=== PATIENT | male | born 1960 | race Caucasian/White ===

== ENCOUNTER 2020-04-12 08:48 | Day surgery (SDC) | payer OTHER, SELFPAY ==
[2020-04-12] VITALS (7 sets, daily range): BP systolic 102–155; BP diastolic 65–85; PULSE 62–68; RESP 12–18; TEMP 36.3–37; O2SAT 95–100; BMI 25.6
--- NOTE | 2020-04-12 | PATH_ITS ---
[facility] Accession Number: [id number] . 01 Material submitted: . PART A: rectum - RECTAL POLYP PART B: colon - APPENDICEAL . 02 Diagnosis: A. Rectal Polyp: Tubular adenoma. . B. Appendiceal: Portions of tubular adenoma x3. MRV 04/15/2020 0948 Local . 02 Electronically signed: . Beatriz Campos MD, Pathologist NPI- [id number] . 01 Gross description: . A. Specimen A is received in formalin, labeled rectal polyp and consists of a 0.3 x 0.3 x 0.2 cm alejandra fragment of soft tissue, which is entirely submitted in cassette A1. B. Specimen B is received in formalin, labeled appendiceal biopsy and consists of three alejandra-pink fragments of soft tissue, measuring 0.6 x 0.5 x 0.2 cm in aggregate. The specimen is entirely submitted in cassette B1. ([id number]) /[facility] 04/13/2020 1800 Local . 02 Pathologist provided ICD-10: K63.5, Z12.11 . 02 CPT . 685746, [id number] Performed at: 01 [facility] [address] [facility], [place], [place] [id number] MD Abelino Mcdonald MD Phone: [phone] Performed at: 02 [facility] [address] [place], [place] [id number] MD Dee Dorado MD Phone: [phone]
[2020-04-12] MEDS: LACTATED RINGERS 1,000 ML 200 ML IV (09:20)
--- NOTE | 2020-04-12 09:40 | PM.HP.1 ---
History of Present Illness History of Present Illness Date Patient Seen: 04/12/20 Time Patient Seen: 09:41 Chief complaint: SDC Narrative: The patient presents for colorectal sreening. They have never had any previous examination for such. No personal or family history of colon cancer. On further history denies any recent gastrointestinal symptoms. No nausea, vomiting, abdominal pain, loss of appetite, unexplained weight loss, change in bowel habits, diarrhea, constipation, melena, hematochezia, or bright red blood per rectum. Patient History Medical History Tobacco abuse (Acute) Family & Social History Social History: household members significant other Tobacco & Substance use: Tobacco type cigarettes Smoking Status Current every day smoker Smoking packs per day 0.5 alcohol intake current alcohol intake frequency 0-2 drinks per day Substance Use Type marijuana Meds Home Medications and Allergies Home Medications Medication Instructions Recorded Confirmed Type No Known Home Medications 04/12/20 04/12/20 History Allergies Allergy/AdvReac Type Severity Reaction Status Date / Time amoxicillin Allergy Verified 04/12/20 09:00 Review of Systems Review of Systems Narrative: A 10 point review of systems is negative except as noted in the HPI Exam Vital Signs (past 8 hours): - 04/12/20 09:10 Temperature 97.4 F L Pulse Rate 64 Respiratory Rate 17 Blood Pressure 155/85 H Pulse Oximetry 100 Oxygen Delivery Method Room Air Narrative Exam Narrative: General-no acute distress, well nourished adult male HEENT-moist mucous membranes, no scleral icterus Neck-supple, no lymphadenopathy Chest- non labored respirations, clear to auscultation bilaterally Cardiac-regular rate no peripheral edema Abdomen-soft, nontender, non distended Extremities-warm, well perfused Neurological-alert and oriented, no focal deficits Assessment & Plan Assessment & Plan narrative: The patient requires colorectal screening and colonoscopy is recommended. Technical details were discussed. Risks, benefits, alternatives explained. Risks including but not limited to myocardial infarction, aspiration, bleeding, pain, missed lesion, incomplete examination, need for further radiographic studies, colonic perforation, and need for major abdominal surgery were discussed. All questions were answered to their satisfaction, and they are in agreement with this plan.
[2020-04-12] MEDS: fentaNYL 250 MCG/5 ML INJ IV (09:51)
[2020-04-12] MEDS: MIDAZOLAM 5 MG/5 ML VIAL IV (09:51)
--- NOTE | 2020-04-12 10:08 | PM.OP.ENDO ---
Operative Date/Time/Diagnoses Date of procedure: 04/12/20 Time of procedure: 10:08 Pre-op diagnosis: Screening colonoscopy Post-op diagnosis: same Procedure & Clinicians Study performed: Colonoscopy Same procedure as scheduled: Yes Indications: 60-year-old male no prior colonoscopy presents for routine screening Surgeon: Jose Alfredo Kirkpatrick Procedure Notes SCOAP/Timeout: Performed Procedure in detail: Patient placed in left lateral recumbent position. Time out was performed. Procedural sedation was administered with Versed and Fentanyl. Examination began with a thorough inspection of the perianal area there was no evidence of fissures, fistulae, external hemorrhoids or cutaneous malignancy. The colonoscopy scope was then placed into the rectum the the lumen was insufflated with air. The scope was carefully advanced forward. Ultimately the cecum was intubated and confirmed by identification of the ileocecal valve, the appendiceal orifice and the confluence of the taenia. The scope was then slowly withdrawn examining colon thoroughly in all directions. In the rectum the rectal columns were identified and retroflexion of the scope was performed for inspection of the distal rectum and anal canal. The colonoscopy was notable for the followin. Quality of the preparation-good 2. Appendiceal orifice polyp biopsy taken with forceps. Difficult to tell whether this was a true polyp or a prolapsing fold of mucosa from within the appendix. 3. 3 mm rectal polyp removed with biopsy forceps. 4. Grade 1 internal hemorrhoids Scope withdrawal time: 7 Sedation minutes: 21 Findings: polyp Specimen(s): other (Appendiceal polyp, rectal polyp) Complications: none Impression: Two polyps removed Post-procedure Recommendations: Colonscopy in 5 years Disposition: same day surgery
== END 2020-04-12 11:00 | disposition home or self-care (01) ==
PROVIDERS: PCP Family Medicine; Referring Provider Surgery; Visit Provider Surgery
PROC: 0DJD8ZZ Inspection of Lower Intestinal Tract, Via Natural or Artificial Opening Endoscopic (ICD-10-PCS; CPT 45378; principal; 2020-04-12 10:00)
DX: Z12.11 Encounter for screening for malignant neoplasm of colon (principal); F17.210 Nicotine dependence, cigarettes, uncomplicated; K64.0 First degree hemorrhoids; D12.1 Benign neoplasm of appendix; D12.8 Benign neoplasm of rectum
CPT/HCPCS: 45380; 99152; J2250; J3010